=== PATIENT | male | born 1970 | race Caucasian/White ===

== ENCOUNTER 2024-10-10 08:36 | Outpatient (CLI) | payer OTHER, SELFPAY ==
--- NOTE | 2024-10-10 08:45 | XR_ITS ---
WS: [id number] Exam: XR thoracic spine 2V [id number] Date/Time of Exam: 10/10/2024 8:46 AM Reason For Exam: DEGENERATIVE JOINT DZ No fracture. Mild spondylosis. Normal paraspinal soft tissues. Slight upper thoracic scoliosis with RIGHT convexity. XR/XR thoracic spine 2V [id number] IMPRESSION: 1. No fracture or malalignment. 2. Minimal degenerative changes and slight scoliosis.
--- NOTE | 2024-10-10 08:45 | XR_ITS ---
WS: [id number] Exam: XR lumbar spine 2-3V* [id number] Date/Time of Exam: 10/10/2024 8:46 AM Reason For Exam: DEGENERATIVE JOINT DZ No acute fracture. Anterior fusion of the spine at L4-5 and L5-S1 noted with screws and disc spacers. The fusion is in good alignment. No sign of hardware complication. The remainder of the lumbar spine is unremarkable. 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 Surgical clips in the LEFT abdomen. XR/XR lumbar spine 2-3V* [id number] IMPRESSION: 1. Stable appearing fusion from L4-S1. 2. Degenerative changes. No acute fracture.
== END 2024-10-10 08:37 | disposition home or self-care (01) ==
LOC: RAD 08:41
PROVIDERS: PCP Internal Medicine; Visit Provider Chiropractor
DX: M47.894 Other spondylosis, thoracic region (principal); R93.7 Abnormal findings on diagnostic imaging of other parts of musculoskeletal system; Z98.1 Arthrodesis status; M47.897 Other spondylosis, lumbosacral region; Z98.890 Other specified postprocedural states
CPT/HCPCS: 72070; 72100